=== PATIENT | female | born 1945 | race Caucasian/White ===

== ENCOUNTER 2025-05-12 09:33 | Outpatient (CLI) | payer MEDICARE, OTHER | END 2025-05-12 09:34 | disposition home or self-care (01) | LOC: CSHSLEEP 09:33 | PROVIDERS: ATTEND Family Medicine | DX: G47.33 Obstructive sleep apnea (adult) (pediatric) (principal); G47.10 Hypersomnia, unspecified; R53.83 Other fatigue; R41.89 Other symptoms and signs involving cognitive functions and awareness; F32.A Depression, unspecified; K21.9 Gastro-esophageal reflux disease without esophagitis; E66.9 Obesity, unspecified; Z68.32 Body mass index [BMI] 32.0-32.9, adult; R06.83 Snoring; G47.00 Insomnia, unspecified; I10 Essential (primary) hypertension | CPT/HCPCS: 95800 ==